=== PATIENT | female | born 1975 | race Caucasian/White ===

== ENCOUNTER 2016-09-12 07:18 | Emergency (ER) | payer OTHER ==
--- NOTE | 2016-09-12 08:24 | REP ---
Clinical: Trauma. Technique: AP, lateral, bilateral oblique and sunrise views of the right knee. Findings: Mild tricompartmental osteoarthritic degenerative changes are appreciated. Findings include cortical irregularities to the femoral condyles as well as medial osteophyte formation. [place] view demonstrates a bulky osteophyte along the lateral margin of the patella as well as increased sclerosis along the posterior patella and minimally decreased patellofemoral joint space. A suprapatellar effusion and medial prepatellar soft tissue swelling cannot be excluded. No acute fracture or dislocation identified. Impression: Swelling and possible effusion. Mild tricompartmental degenerative changes. No acute fracture or dislocation identified. Signed by Ranjit Bal MD 09/12/2016 08:16 A
--- NOTE | 2016-09-12 08:25 | EDDOCDS ---
Nurse's Notes [facility] Name: Tess Dotson Age: 40 yrs Sex: Female : 1975 Arrival Date: 09/12/2016 Time: 07:18 Bed I5 / M5 Private MD: Diagnosis: Pain in right knee Presentation: 09/12 07:25 Presenting complaint: Patient states: Injured right knee during work at [employer] last night mlb1 "turned awkwardly". Adult Sepsis Screening: The patient does not have new or worsening altered mentation. Patient's respiratory rate is less than 22. Systolic blood pressure is greater than 100. Patient has a qSOFA score of 0- Negative Sepsis Screen. Suicide/Homicide risk assessment- the patient denies having any suicidal and/or homicidal ideations and does not present with any other emotional, behavioral or mental health complaints. 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 Transition of care: patient was not received from another setting of care. 07:25 Acuity: MELINA Level 4 mlb1 07:25 Method Of Arrival: Walkin/Carried/Asstd mlb1 Triage Assessment: 07:28 General: Appears in no apparent distress, Behavior is appropriate for age, cooperative. mlb1 Pain: Location: right knee Pain currently is 5 out of 10 on a pain scale. Pt Declines HIV testing. 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 cetirizine 10 mg oral tab 1 tab once daily - PMHx: none; - PSHx: ; - Social history: Smoking status: No barriers to communication noted, The patient speaks fluent Croatian, Speaks appropriately for age. - Family history: Not pertinent. - : The pt / caregiver states he / she is not on anticoagulants. Home medication list is obtained from the patient. - Exposure Risk Screening:: None identified. Screenin:36 Screening information is obtained from the patient. Fall risk: No risks identified. jmk Assistance ADL's: requires no assistance with activities of daily living. Abuse/DV Screen: The patient / caregiver reports he/she is: not in a situation that causes fear, pain or injury. Nutritional screening: No deficits noted. Advance Directives: Currently, there is no health care proxy. There is no active DNR order. There is no living will. There is no Power of Lead Teller. Advance directive information has not previously been placed in an [facility] medical record. home support is adequate. Assessment: 07:34 General: Appears in no apparent distress, skin warm and dry color satisfactory.. jmk Indicates discomfort to right knee. without swelling redness or increased warmth. Is able to SLR. pain with palpation ot medial aspect.. 08:22 General: Appears 6" rachel wrap applied with relief.gait steady upon discharge. [facility] Vital Signs: 07:28 BP 127 / 85; Pulse 69; Resp 16; Temp 98.2(TE); Pulse Ox 96% ; Weight 108.86 kg (R); mlb1 Height 5 ft. 7 in. (170.18 cm) (R); Pain 5/10; 07:28 Body Mass Index 37.59 (108.86 kg, 170.18 cm) [facility] Vitals: 07:28 Log In Time: September 12, 2016 at 07:15. [facility] ED Course: 07:19 Patient visited by Alcides Burch Reg. pm4 07:19 Patient moved to Waiting pm4 07:25 Patient visited by Jonathan Stanford, RN. mlb1 07:26 Triage Initiated mlb1 07:29 Patient visited by Jonathan Stanford, RN. mlb1 07:29 Patient moved to I5 / M5 mlb1 07:32 [facility] cc[facility] 07:32 Ruben Henderson MD is Attending Physician. cc10 07:32 Patient visited by Brendan Gann PA-C. cc10 07:32 Patient visited by Brendan Gann PA-C. cc10 07:36 The patient / caregiver is instructed regarding the plan of care and ED course. jmk 08:13 [facility] is Referral Physician. cc10 08:22 No IV's were initiated during this patient's visit. No procedures done that require jmk assistance. Order Results: There are currently no results for this order. Outcome: 08:13 Discharge ordered by Provider. cc10 08:22 Discharge Assessment: Patient awake, alert and oriented x 3. No cognitive and/or jmk functional deficits noted. Patient verbalized understanding of disposition instructions. patient administered narcotics - no. The following High Risk Discharge criteria are identified: None. Condition: good. Discharge instructions given to patient, Instructed on discharge instructions, follow up and referral plans. medication usage, Demonstrated understanding of instructions, medications, Pt was receptive of discharge instructions/ teaching. Prescriptions given X 1. No special radiology studies were completed. Property :Personal belongings accompany Pt. 08:24 Patient left the ED. zoe Signatures: Glenn Herrera RN RN Jonathan Ga RN RN mlBrendan Brothers PA-C PAGretchen cc10 Alcides Burch, Reg Reg pm4 Corrections: (The following items were deleted from the chart) 07:26 07:25 Presenting complaint: Patient states: Injured right knee at work last night mlb1 "turned awkwardly" mlmaggie MTDD
--- NOTE | 2016-09-12 08:25 | EDDOCDS ---
Physician Documentation [facility] Name: Tess Dotson Age: 40 yrs Sex: Female : 1975 Arrival Date: 09/12/2016 Time: 07:18 Bed I5 / M5 Private MD: Disposition: 09/12/16 08:13 Discharged to Home/Self Care. Impression: Pain in right knee. - Condition is Stable. - Discharge Instructions: Knee Pain. - Prescriptions for Naprosyn 500 mg Oral Tablet - take 1 tablet by ORAL route 2 times per day take with food; 30 tablet. - Medication Reconciliation, [facility] Followup form. - Follow up: [facility]; When: Call to arrange an appointment; Reason: Wound/Symptom Recheck, Recheck today's complaints, Worsening of conditions, Continuance of care. - Problem is new. - Symptoms are unchanged. Historical: - Allergies: no known allergies; - Home Meds: 1. cetirizine 10 mg oral tab 1 tab once daily - PMHx: none; - PSHx: ; - Social history: Smoking status: No barriers to communication noted, The patient speaks fluent [place], Speaks appropriately for age. - Family history: Not pertinent. - : The pt / caregiver states he / she is not on anticoagulants. Home medication list is obtained from the patient. - Exposure Risk Screening:: None identified. [employer]: 09/12 07:28 LMP 08/21/2016 mlb1 Vital Signs: 07:28 BP 127 / 85; Pulse 69; Resp 16; Temp 98.2(TE); Pulse Ox 96% ; Weight 108.86 kg / 240 mlb1 lbs (R); Height 5 ft. 7 in. (170.18 cm) (R); Pain 5/10; 07:28 Body Mass Index 37.59 (108.86 kg, 170.18 cm) mlb1 MDM: 07:36 Knee, Complete Ordered. EDMS 07:43 Financial registration complete. lg 08:16 Luis Wrap ordered. cc10 Signatures: Dispatcher [employer] EDMS Glenn Herrera RN RN Briseyda Crowell, Mariano Reg Jonathan Rivas RN RN mlb1 Brendan Gann, PARachelC PA-C cc10 MTDD
--- NOTE | 2016-09-14 09:25 | EDDOCDS ---
Physician Documentation [facility] Name: Tess Dotson Age: 40 yrs Sex: Female : 1975 Arrival Date: 09/12/2016 Time: 07:18 Bed I5 / M5 Private MD: Disposition: 09/12/16 08:13 Discharged to Home/Self Care. Impression: Pain in right knee. - Condition is Stable. - Discharge Instructions: Knee Pain. - Prescriptions for Naprosyn 500 mg Oral Tablet - take 1 tablet by ORAL route 2 times per day take with food; 30 tablet. - Medication Reconciliation, [facility] Followup form. - Follow up: [facility]; When: Call to arrange an appointment; Reason: Wound/Symptom Recheck, Recheck today's complaints, Worsening of conditions, Continuance of care. - Problem is new. - Symptoms are unchanged. Historical: - Allergies: no known allergies; - Home Meds: 1. cetirizine 10 mg oral tab 1 tab once daily - PMHx: none; - PSHx: ; - Social history: Smoking status: No barriers to communication noted, The patient speaks fluent Panamanian, Speaks appropriately for age. - Family history: Not pertinent. - : The pt / caregiver states he / she is not on anticoagulants. Home medication list is obtained from the patient. - Exposure Risk Screening:: None identified. 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 7 in. (170.18 cm) (R); Pain 5/10; 07:28 Body Mass Index 37.59 (108.86 kg, 170.18 cm) mlb1 MDM: 07:36 Knee, Complete Ordered. EDMS 07:43 Financial registration complete. lg 08:16 Luis Wrap ordered. cc10 08:40 [facility] Agreement was scanned into [employer] and attached to record. lg 12:43 T-Sheet-- Draft Copy was scanned into [employer] and attached to record. klr Signatures: Dispatcher [employer] EDRI Glenn Herrera,RN RN Briseyda Crowell, Reg Reg lg Abdoulaye, Jonathan Salamanca RN RN mlb1 Brendan Gann, PARachelC PA-C cc10 Eda Schwartz The chart was reviewed and I authenticate all verbal orders and agree with the evaluation and treatment provided.Attachments: 08:40 [facility] Payment Agreement lg 12:43 T-Sheet-- Draft Copy klr Chart Complete MTDD
--- NOTE | 2016-09-14 09:25 | EDDOCDS ---
Physician Documentation [facility] Name: Tess Dotson Age: 40 yrs Sex: Female : 1975 Arrival Date: 09/12/2016 Time: 07:18 Bed I5 / M5 Private MD: Disposition: 09/12/16 08:13 Discharged to Home/Self Care. Impression: Pain in right knee. - Condition is Stable. - Discharge Instructions: Knee Pain. - Prescriptions for Naprosyn 500 mg Oral Tablet - take 1 tablet by ORAL route 2 times per day take with food; 30 tablet. - Medication Reconciliation, [facility] Followup form. - Follow up: [facility]; When: Call to arrange an appointment; Reason: Wound/Symptom Recheck, Recheck today's complaints, Worsening of conditions, Continuance of care. - Problem is new. - Symptoms are unchanged. Historical: - Allergies: no known allergies; - Home Meds: 1. cetirizine 10 mg oral tab 1 tab once daily - PMHx: none; - PSHx: ; - Social history: Smoking status: No barriers to communication noted, The patient speaks fluent [place], Speaks appropriately for age. - Family history: Not pertinent. - : The pt / caregiver states he / she is not on anticoagulants. Home medication list is obtained from the patient. - Exposure Risk Screening:: None identified. 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 7 in. (170.18 cm) (R); Pain 5/10; 07:28 Body Mass Index 37.59 (108.86 kg, 170.18 cm) mlb1 MDM: 07:36 Knee, Complete Ordered. EDMS 07:43 Financial registration complete. lg 08:16 Luis Wrap ordered. cc10 08:40 [facility] [place] [facility] Payment Agreement was scanned into [employer] and attached to record. lg 12:43 T-Sheet-- Draft Copy was scanned into [employer] and attached to record. klr Signatures: Dispatcher [employer] EDIL Glenn Herrera,RN RN Briseyda Crowell, Reg Reg lg Abdoulaye, Jonathan Salamanca RN RN mlb1 Brendan Gann, PARachelC PA-C cc10 Eda Schwartz The chart was reviewed and I authenticate all verbal orders and agree with the evaluation and treatment provided.Attachments: 08:40 [facility] Payment Agreement lg 12:43 T-Sheet-- Draft Copy klr Chart Complete MTDD
--- NOTE | 2016-09-14 09:26 | EDDOCDS ---
Nurse's Notes [facility] Name: Tess Dotson Age: 40 yrs Sex: Female : 1975 Arrival Date: 09/12/2016 Time: 07:18 Bed I5 / M5 Private MD: Diagnosis: Pain in right knee Presentation: 09/12 07:25 Presenting complaint: Patient states: Injured right knee during work at [employer] last night mlb1 "turned awkwardly". Adult Sepsis Screening: The patient does not have new or worsening altered mentation. Patient's respiratory rate is less than 22. Systolic blood pressure is greater than 100. Patient has a qSOFA score of 0- Negative Sepsis Screen. Suicide/Homicide risk assessment- the patient denies having any suicidal and/or homicidal ideations and does not present with any other emotional, behavioral or mental health complaints. 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 Transition of care: patient was not received from another setting of care. 07:25 Acuity: MELINA Level 4 mlb1 07:25 Method Of Arrival: Walkin/Carried/Asstd mlb1 Triage Assessment: 07:28 General: Appears in no apparent distress, Behavior is appropriate for age, cooperative. mlb1 Pain: Location: right knee Pain currently is 5 out of 10 on a pain scale. Pt Declines HIV testing. 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 cetirizine 10 mg oral tab 1 tab once daily - PMHx: none; - PSHx: ; - Social history: Smoking status: No barriers to communication noted, The patient speaks fluent Sudanese, Speaks appropriately for age. - Family history: Not pertinent. - : The pt / caregiver states he / she is not on anticoagulants. Home medication list is obtained from the patient. - Exposure Risk Screening:: None identified. Screenin:36 Screening information is obtained from the patient. Fall risk: No risks identified. jmk Assistance ADL's: requires no assistance with activities of daily living. Abuse/DV Screen: The patient / caregiver reports he/she is: not in a situation that causes fear, pain or injury. Nutritional screening: No deficits noted. Advance Directives: Currently, there is no health care proxy. There is no active DNR order. There is no living will. There is no Power of Rv Service Technician. Advance directive information has not previously been placed in an [facility] medical record. home support is adequate. Assessment: 07:34 General: Appears in no apparent distress, skin warm and dry color satisfactory.. jmk Indicates discomfort to right knee. without swelling redness or increased warmth. Is able to SLR. pain with palpation ot medial aspect.. 08:22 General: Appears 6" rachel wrap applied with relief.gait steady upon discharge. k Vital Signs: 07:28 BP 127 / 85; Pulse 69; Resp 16; Temp 98.2(TE); Pulse Ox 96% ; Weight 108.86 kg (R); mlb1 Height 5 ft. 7 in. (170.18 cm) (R); Pain 5/10; 07:28 Body Mass Index 37.59 (108.86 kg, 170.18 cm) [facility] Vitals: 07:28 Log In Time: September 12, 2016 at 07:15. b1 ED Course: 07:19 Patient visited by Alcides Burch Reg. pm4 07:19 Patient moved to Waiting pm4 07:25 Patient visited by Jonathan Stanford, RN. mlb1 07:26 Triage Initiated mlb1 07:29 Patient visited by Jonathan Stanford, RN. mlb1 07:29 Patient moved to I5 / M5 mlb1 07:32 Brendan Gann [facility]-C [facility] cc10 07:32 Ruben Henderson MD is Attending Physician. cc10 07:32 Patient visited by Brendan Gann PA-C. cc10 07:32 Patient visited by Brendan Gann PA-C. cc10 07:36 The patient / caregiver is instructed regarding the plan of care and ED course. jmk 08:13 [facility] is Referral Physician. cc10 08:22 No IV's were initiated during this patient's visit. No procedures done that require jmk assistance. 08:39 Patient name changed from Tess\\S\\K\\S\\Dotson\\S\\ to Tess\\S\\Erika\\S\\Dotson. EDMS 08:40 [facility] Payment Agreement was scanned into [employer] and attached to record. lg 08:55 Knee, Complete Returned. EDMS 12:43 T-Sheet-- Draft Copy was scanned into [employer] and attached to record. klr Order Results: Radiology Order: Knee, Complete Test: Knee, Complete REASON FOR EXAMINATION: Trauma; Clinical: Trauma.; ; Technique: AP, lateral, bilateral oblique and sunrise views of the right knee.; ; Findings:; Mild tricompartmental osteoarthritic degenerative changes are appreciated.; Findings include cortical irregularities to the femoral condyles as well as; medial osteophyte formation. [place] view demonstrates a bulky osteophyte along; the lateral margin of the patella as well as increased sclerosis along the; posterior patella and minimally decreased patellofemoral joint space. A; suprapatellar effusion and medial prepatellar soft tissue swelling cannot be; excluded. No acute fracture or dislocation identified.; ; Impression:; Swelling and possible effusion.; Mild tricompartmental degenerative changes.; No acute fracture or dislocation identified.; ; ; Signed by; Ranjit Bal MD 09/12/2016 08:16 A; Outcome: 08:13 Discharge ordered by Provider. cc10 08:22 Discharge Assessment: Patient awake, alert and oriented x 3. No cognitive and/or k functional deficits noted. Patient verbalized understanding of disposition instructions. patient administered narcotics - no. The following High Risk Discharge criteria are identified: None. Condition: good. Discharge instructions given to patient, Instructed on discharge instructions, follow up and referral plans. medication usage, Demonstrated understanding of instructions, medications, Pt was receptive of discharge instructions/ teaching. Prescriptions given X 1. No special radiology studies were completed. Property :Personal belongings accompany Pt. 08:24 Patient left the ED. zoe Signatures: Dispatcher [facility] EDWI Glenn Herrera,RN RN Briseyda Crowell, Reg Reg lg Jonathan Stanford RN RN mlb1 Brendan Gann, PARachelC PA-C cc10 Eda Schwartz Alcides Gaytan, Reg Reg pm4 Corrections: (The following items were deleted from the chart) 07:26 07:25 Presenting complaint: Patient states: Injured right knee at work last night mlb1 "turned awkwardly" mlb1 Chart Complete MTDD
== END 2016-09-12 08:24 | disposition home or self-care (01) ==
LOC: M ED 07:18
DX: S83.91XA Sprain of unspecified site of right knee, initial encounter (principal); X50.1XXA Overexertion from prolonged static or awkward postures, initial encounter; Y92.129 Unspecified place in nursing home as the place of occurrence of the external cause; Y93.9 Activity, unspecified; Y99.0 Civilian activity done for income or pay; Z79.899 Other long term (current) drug therapy

== ENCOUNTER → 2016-11-22 | Outpatient (CLI) | payer OTHER ==
[2016-11-22 15:35] LABS: MEAN CORPUSCULAR HEMOGLOBIN 32.6 pg (27.0-33.0); MEAN CORPUSCULAR HGB CONC 35.8 g/dl (32.0-36.5); MEAN CORPUSCULAR VOLUME 91.2 fl (80.0-96.0); RED CELL DISTRIBUTION WIDTH 12.3 % (11.5-14.5); WHITE BLOOD COUNT 7.4 K/mm3 (4.0-10.0)
[2016-11-22 16:05] LABS: ALBUMIN 3.9 GM/DL (3.2-5.2); ALBUMIN/GLOBULIN RATIO 1.22 (1.00-1.93); ALKALINE PHOSPHATASE 76 U/L (45-117); ALT/SGPT 25 U/L (12-78); ANION GAP 7 MEQ/L (8-16); AST/SGOT 13 U/L (15-37); BILIRUBIN,TOTAL 0.5 MG/DL (0.2-1.0); BLOOD UREA NITROGEN 13 MG/DL (7-18); CALCIUM LEVEL 8.8 MG/DL (8.5-10.1); CARBON DIOXIDE LEVEL 29 MEQ/L (21-32); CHLORIDE LEVEL 105 MEQ/L (98-107); CHOLESTEROL LEVEL 144 MG/DL (<200); CREATININE FOR GFR 0.76 MG/DL (0.55-1.02); FREE T4 0.99 NG/DL (0.76-1.46); GLOMERULAR FILTRATION RATE > 60.0 (>58); GLUCOSE, FASTING 96 MG/DL (70-105); POTASSIUM SERUM 3.7 MEQ/L (3.5-5.1); SODIUM LEVEL 141 MEQ/L (136-145); TOTAL PROTEIN 7.1 GM/DL (6.4-8.2); TRIGLYCERIDES LEVEL 113 MG/DL (<150)
== END ==
LOC: M LAB 14:45
PROVIDERS: ATTEND Student in an Organized Health Care Education/Training Program
DX: M25.552 Pain in left hip (principal); R53.83 Other fatigue; Z79.899 Other long term (current) drug therapy; Z71.89 Other specified counseling

== ENCOUNTER → 2016-11-23 | Outpatient (CLI) | payer OTHER ==
--- NOTE | 2016-11-23 15:50 | REP ---
LEFT HIP, TWO VIEWS: HISTORY: Pain. There is no acute fracture or dislocation. The joint space is normal in appearance. A small osteophyte is present on the acetabulum. IMPRESSION: Degenerative change as described above. Signed by Carlos Morfin MD 11/23/2016 03:59 P
== END ==
LOC: M RAD 15:05
PROVIDERS: ATTEND Student in an Organized Health Care Education/Training Program
DX: M19.90 Unspecified osteoarthritis, unspecified site (principal); M25.552 Pain in left hip

== ENCOUNTER → 2017-02-05 | Outpatient (REF) | payer OTHER | LOC: M LAB REF 08:50 | PROVIDERS: ATTEND Physician Assistant Medical | DX: R30.0 Dysuria (principal) ==

== ENCOUNTER → 2017-03-04 | Outpatient (REF) | payer OTHER, SELFPAY | LOC: M LAB REF 16:26 | PROVIDERS: ATTEND Physician Assistant Medical | DX: R30.0 Dysuria (principal) ==

== ENCOUNTER → 2017-09-23 | Outpatient (REF) | payer BC ==
[2017-09-23 18:11] LABS: APPEARANCE, URINE CLEAR (CLEAR); BACTERIA, URINE AUTO NEGATIVE (NEGATIVE); BILIRUBIN, URINE AUTO NEGATIVE (NEGATIVE); BLOOD, URINE BLOOD 3+ (NEGATIVE); COLOR, URINE YELLOW (YELLOW); GLUCOSE, URINE (UA) AUTO NEGATIVE (NEGATIVE); KETONE, URINE AUTO NEGATIVE (NEGATIVE); LEUKOCYTE ESTERASE, URINE AUTO NEGATIVE (NEGATIVE); MUCUS, URINE SMALL (NEGATIVE); NITRITE, URINE AUTO NEGATIVE (NEGATIVE); PROTEIN, URINE AUTO NEGATIVE (NEGATIVE); RBC, URINE AUTO 12 /HPF (0-3); SPECIFIC GRAVITY URINE AUTO 1.024 (1.002-1.035); SQUAMOUS EPITHELIAL CELL UR AU 0 /HPF (0-6); UROBILINOGEN, URINE AUTO 0.2 mg/dL (0.0-2.0); WBC, URINE AUTO 1 /HPF (0-3)
== END ==
LOC: M LAB REF 16:32
DX: N39.0 Urinary tract infection, site not specified (principal)
CPT/HCPCS: 81001

== ENCOUNTER → 2017-11-18 | Outpatient (REF) | payer BC ==
[2017-11-18 21:57] LABS: APPEARANCE, URINE CLEAR (CLEAR); BACTERIA, URINE AUTO 1+ (NEGATIVE); BILIRUBIN, URINE AUTO NEGATIVE (NEGATIVE); BLOOD, URINE BLOOD 1+ (NEGATIVE); CALCIUM OXALATE CRYSTALS SMALL; COLOR, URINE YELLOW (YELLOW); GLUCOSE, URINE (UA) AUTO NEGATIVE (NEGATIVE); KETONE, URINE AUTO TRACE mg/dL (NEGATIVE); LEUKOCYTE ESTERASE, URINE AUTO 1+ (NEGATIVE); MUCUS, URINE SMALL (NEGATIVE); NITRITE, URINE AUTO NEGATIVE (NEGATIVE); PROTEIN, URINE AUTO NEGATIVE (NEGATIVE); RBC, URINE AUTO 2 /HPF (0-3); SPECIFIC GRAVITY URINE AUTO 1.028 (1.002-1.035); SQUAMOUS EPITHELIAL CELL UR AU 4 /HPF (0-6); UROBILINOGEN, URINE AUTO 0.2 mg/dL (0.0-2.0); WBC, URINE AUTO 2 /HPF (0-3)
== END ==
LOC: M LAB REF 10:26
DX: N39.0 Urinary tract infection, site not specified (principal)
CPT/HCPCS: 81001

== ENCOUNTER → 2018-02-20 | Outpatient (REF) | payer BC ==
[2018-02-20 17:09] LABS: APPEARANCE, URINE CLEAR (CLEAR); BACTERIA, URINE AUTO 1+ (NEGATIVE); BILIRUBIN, URINE AUTO NEGATIVE (NEGATIVE); BLOOD, URINE BLOOD NEGATIVE (NEGATIVE); COLOR, URINE YELLOW (YELLOW); GLUCOSE, URINE (UA) AUTO NEGATIVE (NEGATIVE); KETONE, URINE AUTO NEGATIVE (NEGATIVE); LEUKOCYTE ESTERASE, URINE AUTO 1+ (NEGATIVE); NITRITE, URINE AUTO NEGATIVE (NEGATIVE); PROTEIN, URINE AUTO NEGATIVE (NEGATIVE); RBC, URINE AUTO 0 /HPF (0-3); SQUAMOUS EPITHELIAL CELL UR AU 2 /HPF (0-6); UROBILINOGEN, URINE AUTO 0.2 mg/dL (0.0-2.0); WBC, URINE AUTO 1 /HPF (0-3)
== END ==
LOC: M LAB REF 16:40
DX: N39.0 Urinary tract infection, site not specified (principal)
CPT/HCPCS: 81001

== ENCOUNTER → 2018-07-16 | Outpatient (CLI) | payer BC ==
--- NOTE | 2018-07-16 16:51 | REPMRS ---
Patient History The patient states she had a clinical breast exam in 06/2018. No known family history of cancer. No Hormone Replacement Therapy Digital Woman Screen Mammo: July 16, 2018 - Exam #: [id number] Bilateral CC and MLO view(s) were taken. Technologist: Sherrell Charles, Technologist No prior studies available for comparison. FINDINGS: There are scattered fibroglandular densities. There is no evidence of dominant mass, architectural distortion, or clustered microcalcification typical of malignancy. 3-D tomosynthesis shows no additional findings. Assessment: BI-RADS/ACR category 1 mammogram. Negative. Recommendation Routine screening mammogram of both breasts in 1 year (for women over age 40). This patient's Lifetime Breast Cancer RIsk is estimated at 9.0 %. This mammogram was interpreted with the aid of an FDA-approved computer-aided dectection system. Electronically Signed By: Ortiz Schmidt MD 07/16/18 [id number]
== END ==
LOC: M WHC 15:06
PROVIDERS: ATTEND Nurse Practitioner Family
DX: Z12.31 Encounter for screening mammogram for malignant neoplasm of breast (principal)

== ENCOUNTER → 2018-07-16 | Outpatient (REF) | payer BC ==
[2018-07-19 14:10] LABS: HPV HYBRID CAPTURE II Negative (Negative)
== END ==
LOC: M SFHCWAGY 15:25
PROVIDERS: ATTEND Nurse Practitioner Family
DX: Z12.4 Encounter for screening for malignant neoplasm of cervix (principal)
CPT/HCPCS: 87624; G0123

== ENCOUNTER → 2018-09-07 | Outpatient (CLI) | payer BC ==
--- NOTE | 2018-09-08 10:49 | REP ---
LEFT WRIST, FOUR VIEWS: There is no evidence of an acute fracture, dislocation or intrinsic bone disease. IMPRESSION: No fracture or dislocation. Electronically Signed by Delbert Colon MD 09/08/2018 10:51 P
== END ==
LOC: M WUC 15:05
PROVIDERS: ATTEND Physician Assistant
DX: S60.212A Contusion of left wrist, initial encounter (principal); X58.XXXA Exposure to other specified factors, initial encounter; Y92.9 Unspecified place or not applicable

== ENCOUNTER → 2020-01-18 | Outpatient (CLI) | payer BC ==
[2020-01-18 12:35] LABS: ALBUMIN 3.9 GM/DL (3.2-5.2); ALT/SGPT 23 U/L (12-78); BILIRUBIN,TOTAL 0.5 MG/DL (0.2-1.0); BLOOD UREA NITROGEN 17 MG/DL (7-18); CALCIUM LEVEL 9.2 MG/DL (8.5-10.1); CARBON DIOXIDE LEVEL 26 MEQ/L (21-32); CHLORIDE LEVEL 107 MEQ/L (98-107); CHOLESTEROL LEVEL 143 MG/DL (<200); CHOLESTEROL RISK RATIO 4.766 (<5); CREATININE FOR GFR 0.76 MG/DL (0.55-1.30); GLOMERULAR FILTRATION RATE > 60.0 (>58); GLUCOSE, FASTING 82 MG/DL (70-100); HDL CHOLESTEROL 30 MG/DL (>40); LDL CHOLESTEROL 73 MG/DL (<100); NON-HDL-C 113 MG/DL; POTASSIUM SERUM 4.3 MEQ/L (3.5-5.1); SODIUM LEVEL 141 MEQ/L (136-145); TOTAL PROTEIN 7.1 GM/DL (6.4-8.2); TRIGLYCERIDES LEVEL 199 MG/DL (<150)
== END ==
LOC: M LAB 10:44
PROVIDERS: ATTEND Physician Assistant Medical
DX: Z13.220 Encounter for screening for lipoid disorders (principal)

== ENCOUNTER → 2020-02-01 | Outpatient (CLI) | payer BC | LOC: M LAB 09:49 | PROVIDERS: ATTEND Physician Assistant Medical | DX: Z11.1 Encounter for screening for respiratory tuberculosis (principal) ==

== ENCOUNTER → 2020-02-05 | Outpatient (CLI) | payer BC | LOC: M LAB 14:04 | PROVIDERS: ATTEND Physician Assistant Medical | DX: Z13.89 Encounter for screening for other disorder (principal) ==

== ENCOUNTER → 2021-03-03 | Outpatient (CLI) | payer BC ==
[2021-03-03 18:28] LABS: ALBUMIN 3.9 GM/DL (3.2-5.2); ALT/SGPT 23 U/L (12-78); BILIRUBIN,TOTAL 0.3 MG/DL (0.2-1.0); BLOOD UREA NITROGEN 18 MG/DL (7-18); CALCIUM LEVEL 8.9 MG/DL (8.5-10.1); CARBON DIOXIDE LEVEL 27 MEQ/L (21-32); CHLORIDE LEVEL 107 MEQ/L (98-107); CHOLESTEROL LEVEL 139 MG/DL (<200); CHOLESTEROL RISK RATIO 4.633 (<5); CREATININE FOR GFR 0.79 MG/DL (0.55-1.30); GLOMERULAR FILTRATION RATE > 60.0 (>58); GLUCOSE, FASTING 84 MG/DL (70-100); HDL CHOLESTEROL 30 MG/DL (>40); LDL CHOLESTEROL 63 MG/DL (<100); NON-HDL-C 109 MG/DL; POTASSIUM SERUM 3.7 MEQ/L (3.5-5.1); SODIUM LEVEL 139 MEQ/L (136-145); TOTAL PROTEIN 7.2 GM/DL (6.4-8.2); TRIGLYCERIDES LEVEL 230 MG/DL (<150)
== END ==
LOC: M LAB 17:24
PROVIDERS: ATTEND Family Medicine
DX: Z00.00 Encounter for general adult medical examination without abnormal findings (principal)

== ENCOUNTER → 2021-03-04 | Outpatient (CLI) | payer BC ==
[2021-03-04 13:50] LABS: BASO % 0.3 % (0.0-1.0); EOS # 0.1 10^3/uL (0.0-0.5); EOS % 1.4 % (0.0-3.0); HEMATOCRIT 40.3 % (36.0-47.0); HEMOGLOBIN 13.6 g/dl (12.0-15.5); LYMPH # 1.9 10^3/uL (1.5-5.0); LYMPH % 30.9 % (24.0-44.0); MEAN CORPUSCULAR HGB CONC 33.7 g/dl (32.0-36.5); MEAN CORPUSCULAR VOLUME 88.8 fl (80.0-96.0); MONO # 0.6 10^3/uL (0.0-0.8); MONO % 9.3 % (2.0-8.0); NEUTROPHILS # 3.6 10^3/uL (1.5-8.5); NEUTROPHILS % 57.8 % (36.0-66.0); PLATELET COUNT, AUTOMATED 235 10^3/uL (150-450); RED BLOOD COUNT 4.54 10^6/uL (4.00-5.40); WHITE BLOOD COUNT 6.3 10^3/uL (4.0-10.0)
== END ==
LOC: M LAB 12:59
PROVIDERS: ATTEND Family Medicine
DX: Z00.00 Encounter for general adult medical examination without abnormal findings (principal)

== ENCOUNTER → 2021-05-01 | Outpatient (REF) | payer BC ==
[2021-05-01 15:28] LABS: APPEARANCE, URINE CLEAR (CLEAR); BACTERIA, URINE AUTO NEGATIVE (NEGATIVE); BILIRUBIN, URINE AUTO NEGATIVE (NEGATIVE); BLOOD, URINE BLOOD NEGATIVE (NEGATIVE); COLOR, URINE YELLOW (YELLOW); GLUCOSE, URINE (UA) AUTO NEGATIVE (NEGATIVE); KETONE, URINE AUTO NEGATIVE (NEGATIVE); LEUKOCYTE ESTERASE, URINE AUTO NEGATIVE (NEGATIVE); MUCUS, URINE SMALL (NEGATIVE); NITRITE, URINE AUTO NEGATIVE (NEGATIVE); PROTEIN, URINE AUTO NEGATIVE (NEGATIVE); RBC, URINE AUTO 1 /HPF (0-3); SPECIFIC GRAVITY URINE AUTO 1.009 (1.002-1.035); SQUAMOUS EPITHELIAL CELL UR AU 0 /HPF (0-6); UROBILINOGEN, URINE AUTO 0.2 mg/dL (0.0-2.0); WBC, URINE AUTO 3 /HPF (0-3)
== END ==
LOC: M LAB REF 14:57
PROVIDERS: ATTEND Physician Assistant Medical
DX: N39.0 Urinary tract infection, site not specified (principal)

== ENCOUNTER → 2021-05-10 | Outpatient (REF) | LOC: M EMP 07:40 | PROVIDERS: ATTEND Family Medicine | DX: Z11.52 Encounter for screening for COVID-19 (principal) ==

== ENCOUNTER → 2021-05-22 | Outpatient (REF) | payer BC ==
[2021-05-22 11:58] LABS: APPEARANCE, URINE HAZY (CLEAR); BACTERIA, URINE AUTO NEGATIVE (NEGATIVE); BILIRUBIN, URINE AUTO NEGATIVE (NEGATIVE); BLOOD, URINE BLOOD 1+ (NEGATIVE); COLOR, URINE AMBER (YELLOW); GLUCOSE, URINE (UA) AUTO NEGATIVE (NEGATIVE); KETONE, URINE AUTO NEGATIVE (NEGATIVE); LEUKOCYTE ESTERASE, URINE AUTO 1+ (NEGATIVE); MUCUS, URINE SMALL (NEGATIVE); NITRITE, URINE AUTO POSITIVE (NEGATIVE); PROTEIN, URINE AUTO 2+ mg/dL (NEGATIVE); RBC, URINE AUTO 12 /HPF (0-3); SPECIFIC GRAVITY URINE AUTO 1.033 (1.002-1.035); SQUAMOUS EPITHELIAL CELL UR AU 10 /HPF (0-6); WBC, URINE AUTO 16 /HPF (0-3)
== END ==
LOC: M LAB REF 11:22
PROVIDERS: ATTEND Physician Assistant Medical
DX: N39.0 Urinary tract infection, site not specified (principal)

== ENCOUNTER → 2021-05-30 | Outpatient (REF) | payer BC | LOC: M LAB REF 17:34 | PROVIDERS: ATTEND Family Medicine | DX: N39.0 Urinary tract infection, site not specified (principal) ==

== ENCOUNTER → 2021-06-29 | Outpatient (CLI) | payer BC | LOC: M WHC 10:03 | PROVIDERS: ATTEND Nurse Practitioner Women's Health | DX: Z12.31 Encounter for screening mammogram for malignant neoplasm of breast (principal) ==

== ENCOUNTER → 2021-06-29 | Outpatient (REF) | payer BC | LOC: M SFHCWAGY 13:55 | PROVIDERS: ATTEND Nurse Practitioner Women's Health | DX: Z12.4 Encounter for screening for malignant neoplasm of cervix (principal); Z01.419 Encounter for gynecological examination (general) (routine) without abnormal findings ==

== ENCOUNTER → 2022-07-25 | Outpatient (REF) | payer BC ==
[2022-07-25 16:33] LABS: APPEARANCE, URINE MANUAL CLEAR (CLEAR); COLOR, URINE MANUAL YELLOW (YELLOW); SPECIFIC GRAVITY,URINE MANUAL 1.015 (1.002-1.035)
[2022-07-25 16:34] LABS: BILIRUBIN, URINE MANUAL NEGATIVE (NEGATIVE); BLOOD URINE MANUAL NEGATIVE (NEGATIVE); GLUCOSE, URINE (UA) MANUAL NEGATIVE (NEGATIVE); KETONE, URINE MANUAL NEGATIVE (NEGATIVE); LEUKOCYTE ESTERASE, URINE MAN TRACE (NEGATIVE); NITRITE, URINE MANUAL POSITIVE (NEGATIVE); PROTEIN, URINE MANUAL NEGATIVE (NEGATIVE); UROBILINOGEN, URINE MANUAL NORMAL (NORMAL)
[2022-07-25 16:56] LABS: BACTERIA, URINE LARGE AMOUNT; HYALINE CAST, URINE NONE SEEN /lpf (0-1); RBC, URINE 0-1 /hpf (0-3); SQUAMOUS EPITHELIAL CELL URINE SMALL AMOUNT /hpf (SMALL AMT)
== END ==
LOC: M LAB REF 16:19
PROVIDERS: ATTEND Physician Assistant
DX: N39.0 Urinary tract infection, site not specified (principal)

== ENCOUNTER → 2022-07-26 | Outpatient (REF) | LOC: M LABSMTC 10:53 | PROVIDERS: ATTEND Family Medicine | DX: Z11.52 Encounter for screening for COVID-19 (principal) ==

== ENCOUNTER → 2022-08-21 | Outpatient (REF) | payer BC ==
[2022-08-21 12:29] LABS: APPEARANCE, URINE MANUAL HAZY (CLEAR); COLOR, URINE MANUAL YELLOW (YELLOW)
[2022-08-21 12:30] LABS: BILIRUBIN, URINE MANUAL NEGATIVE (NEGATIVE); BLOOD URINE MANUAL TRACE (NEGATIVE); GLUCOSE, URINE (UA) MANUAL NEGATIVE (NEGATIVE); KETONE, URINE MANUAL NEGATIVE (NEGATIVE); LEUKOCYTE ESTERASE, URINE MAN POSITIVE (NEGATIVE); NITRITE, URINE MANUAL POSITIVE (NEGATIVE); PROTEIN, URINE MANUAL NEGATIVE (NEGATIVE); UROBILINOGEN, URINE MANUAL NORMAL (NORMAL)
[2022-08-21 12:43] LABS: BACTERIA, URINE LARGE AMOUNT; HYALINE CAST, URINE NONE SEEN /lpf (0-1); SQUAMOUS EPITHELIAL CELL URINE MOD AMOUNT /hpf (SMALL AMT)
== END ==
LOC: M LAB REF 11:29
PROVIDERS: ATTEND Physician Assistant Medical
DX: N39.9 Disorder of urinary system, unspecified (principal)

== ENCOUNTER → 2022-11-07 | Outpatient (CLI) | payer BC ==
[2022-11-07 11:40] LABS: BASO % 0.4 % (0.0-1.0); EOS # 0.1 10^3/uL (0.0-0.5); HEMATOCRIT 38.1 % (36.0-47.0); LYMPH # 1.4 10^3/uL (1.5-5.0); LYMPH % 27.5 % (24.0-44.0); MEAN CORPUSCULAR HEMOGLOBIN 26.1 pg (27.0-33.0); MEAN CORPUSCULAR HGB CONC 31.5 g/dl (32.0-36.5); MONO # 0.4 10^3/uL (0.0-0.8); MONO % 8.6 % (2.0-8.0); NEUTROPHILS # 3.2 10^3/uL (1.5-8.5); NEUTROPHILS % 61.9 % (36.0-66.0); PLATELET COUNT, AUTOMATED 258 10^3/uL (150-450); RED BLOOD COUNT 4.59 10^6/uL (4.00-5.40); WHITE BLOOD COUNT 5.1 10^3/uL (4.0-10.0)
[2022-11-07 12:00] LABS: ALBUMIN 3.8 G/DL (3.2-5.2); ALKALINE PHOSPHATASE 60 U/L (46-116); ALT/SGPT 14 U/L (7.0-40); AST/SGOT 13 U/L (<34); BILIRUBIN,TOTAL 0.6 MG/DL (0.3-1.2); BLOOD UREA NITROGEN 18 MG/DL (9-23); CALCIUM LEVEL 8.7 MG/DL (8.5-10.1); CARBON DIOXIDE LEVEL 24 MMOL/L (20-31); CHLORIDE LEVEL 108 MMOL/L (98-107); CHOLESTEROL LEVEL 138 MG/DL (<200); CHOLESTEROL RISK RATIO 3.79 (<5); CREATININE FOR GFR 0.71 MG/DL (0.55-1.30); GLOMERULAR FILTRATION RATE > 60.0 (>58); GLUCOSE, FASTING 86 MG/DL (60-100); HDL CHOLESTEROL 36.4 MG/DL (>40); LDL CHOLESTEROL 81.4 MG/DL (<100); NON-HDL-C 101.6 MG/DL; SODIUM LEVEL 138 MMOL/L (136-145); TOTAL PROTEIN 6.7 G/DL (5.7-8.2); TRIGLYCERIDES LEVEL 101 MG/DL (<150)
[2022-11-07 12:03] LABS: THYROID STIMULATING HORMONE 0.747 uIU/ML (0.55-4.78)
== END ==
LOC: M LAB 10:57
PROVIDERS: ATTEND Family Medicine
DX: Z00.00 Encounter for general adult medical examination without abnormal findings (principal)

== ENCOUNTER → 2022-11-15 | Outpatient (CLI) | payer BC | LOC: M PLAIMG 15:21 | PROVIDERS: ATTEND Nurse Practitioner Family | DX: Z11.1 Encounter for screening for respiratory tuberculosis (principal) ==

== ENCOUNTER → 2023-03-24 | Outpatient (REF) | payer BC ==
[2023-03-24 20:26] LABS: APPEARANCE, URINE HAZY (CLEAR); BACTERIA, URINE AUTO 2+ (NEGATIVE); BILIRUBIN, URINE AUTO NEGATIVE (NEGATIVE); BLOOD, URINE BLOOD 1+ (NEGATIVE); COLOR, URINE AMBER (YELLOW); GLUCOSE, URINE (UA) AUTO NEGATIVE (NEGATIVE); KETONE, URINE AUTO NEGATIVE (NEGATIVE); LEUKOCYTE ESTERASE, URINE AUTO 2+ (NEGATIVE); MUCUS, URINE SMALL (NEGATIVE); NITRITE, URINE AUTO POSITIVE (NEGATIVE); PROTEIN, URINE AUTO NEGATIVE (NEGATIVE); RBC, URINE AUTO 3 /HPF (0-3); SQUAMOUS EPITHELIAL CELL UR AU 6 /HPF (0-6); UROBILINOGEN, URINE AUTO 0.2 mg/dL (0.0-2.0); WBC, URINE AUTO 83 /HPF (0-3)
== END ==
LOC: M LAB REF 09:21
PROVIDERS: ATTEND Physician Assistant
DX: N39.0 Urinary tract infection, site not specified (principal)

== ENCOUNTER → 2023-06-26 | Outpatient (CLI) | payer BC ==
[2023-06-26 10:16] LABS: BASO % 0.4 % (0.0-1.0); EOS # 0.1 10^3/uL (0.0-0.5); HEMATOCRIT 36.1 % (36.0-47.0); LYMPH # 1.2 10^3/uL (1.5-5.0); LYMPH % 24.1 % (24.0-44.0); MEAN CORPUSCULAR HEMOGLOBIN 23.5 pg (27.0-33.0); MEAN CORPUSCULAR HGB CONC 30.5 g/dl (32.0-36.5); MONO # 0.4 10^3/uL (0.0-0.8); MONO % 8.9 % (2.0-8.0); NEUTROPHILS # 3.2 10^3/uL (1.5-8.5); NEUTROPHILS % 65.2 % (36.0-66.0); PLATELET COUNT, AUTOMATED 330 10^3/uL (150-450); RED BLOOD COUNT 4.69 10^6/uL (4.00-5.40); WHITE BLOOD COUNT 4.9 10^3/uL (4.0-10.0)
[2023-06-26 10:51] LABS: ALBUMIN 3.9 G/DL (3.2-5.2); ALKALINE PHOSPHATASE 60 U/L (46-116); ALT/SGPT 15 U/L (7.0-40); AST/SGOT 12 U/L (<34); BILIRUBIN,TOTAL 0.6 MG/DL (0.3-1.2); BLOOD UREA NITROGEN 20 MG/DL (9-23); CALCIUM LEVEL 9.5 MG/DL (8.5-10.1); CARBON DIOXIDE LEVEL 26 MMOL/L (20-31); CHLORIDE LEVEL 106 MMOL/L (98-107); CHOLESTEROL LEVEL 160 MG/DL (<200); CHOLESTEROL RISK RATIO 3.89 (<5); CREATININE FOR GFR 0.75 MG/DL (0.55-1.30); GLOMERULAR FILTRATION RATE > 60.0 (>58); GLUCOSE, FASTING 98 MG/DL (60-100); HDL CHOLESTEROL 41.1 MG/DL (>40); LDL CHOLESTEROL 101.3 MG/DL (<100); NON-HDL-C 118.9 MG/DL; SODIUM LEVEL 137 MMOL/L (136-145); TOTAL PROTEIN 7.3 G/DL (5.7-8.2); TRIGLYCERIDES LEVEL 88 MG/DL (<150)
== END ==
LOC: M LAB 09:26
PROVIDERS: ATTEND Registered Nurse
DX: E66.9 Obesity, unspecified (principal)

== ENCOUNTER → 2023-08-20 | Outpatient (CLI) | payer BC | LOC: M WHC 10:54 | PROVIDERS: ATTEND Registered Nurse | DX: Z12.31 Encounter for screening mammogram for malignant neoplasm of breast (principal) ==

== ENCOUNTER → 2023-09-30 | Outpatient (REF) | payer BC | LOC: M LABWUC 17:58 | PROVIDERS: ATTEND Registered Nurse | DX: N91.2 Amenorrhea, unspecified (principal) ==

== ENCOUNTER → 2023-10-30 | Outpatient (CLI) | payer BC ==
[2023-10-30 13:33] LABS: BASO % 0.4 % (0.0-1.0); EOS # 0.1 10^3/uL (0.0-0.5); EOS % 1.2 % (0.0-3.0); HEMATOCRIT 29.8 % (36.0-47.0); HEMOGLOBIN 9.3 g/dl (12.0-15.5); LYMPH # 1.7 10^3/uL (1.5-5.0); LYMPH % 34.3 % (24.0-44.0); MEAN CORPUSCULAR HEMOGLOBIN 22.9 pg (27.0-33.0); MEAN CORPUSCULAR HGB CONC 31.2 g/dl (32.0-36.5); MEAN CORPUSCULAR VOLUME 73.4 fl (80.0-96.0); MONO # 0.4 10^3/uL (0.0-0.8); MONO % 7.1 % (2.0-8.0); NEUTROPHILS # 2.9 10^3/uL (1.5-8.5); NEUTROPHILS % 56.6 % (36.0-66.0); PLATELET COUNT, AUTOMATED 328 10^3/uL (150-450); RED BLOOD COUNT 4.06 10^6/uL (4.00-5.40); WHITE BLOOD COUNT 5.1 10^3/uL (4.0-10.0)
[2023-10-30 13:57] LABS: ALBUMIN 3.5 G/DL (3.2-5.2); ALKALINE PHOSPHATASE 71 U/L (46-116); ALT/SGPT 19 U/L (7.0-40); AST/SGOT 16 U/L (<34); BILIRUBIN,TOTAL 0.4 MG/DL (0.3-1.2); BLOOD UREA NITROGEN 22 MG/DL (9-23); CALCIUM LEVEL 9.5 MG/DL (8.5-10.1); CARBON DIOXIDE LEVEL 26 MMOL/L (20-31); CHLORIDE LEVEL 107 MMOL/L (98-107); CREATININE FOR GFR 0.95 MG/DL (0.55-1.30); GLOMERULAR FILTRATION RATE > 60.0 (>58); GLUCOSE, FASTING 90 MG/DL (60-100); IRON (FE) 93 UG/DL (50-170); PERCENT SATURATION 23.5 % (13.2-45.0); SODIUM LEVEL 135 MMOL/L (136-145); TOTAL IRON BINDING CAPACITY 396 UG/DL (250-425); TOTAL PROTEIN 6.9 G/DL (5.7-8.2)
[2023-10-30 13:59] LABS: FERRITIN 2.4 NG/ML (7.3-270.7)
== END ==
LOC: M LAB 12:18
PROVIDERS: ATTEND Registered Nurse
DX: N92.1 Excessive and frequent menstruation with irregular cycle (principal)

== ENCOUNTER → 2023-11-11 | Outpatient (CLI) | payer BC | LOC: M RAD 14:15 | PROVIDERS: ATTEND Registered Nurse | DX: N92.1 Excessive and frequent menstruation with irregular cycle (principal) ==

== ENCOUNTER → 2023-11-29 | Outpatient (CLI) | payer BC ==
[2023-11-29 14:47] LABS: BASO % 0.2 % (0.0-1.0); EOS # 0.1 10^3/uL (0.0-0.5); EOS % 1.2 % (0.0-3.0); HEMATOCRIT 26.7 % (36.0-47.0); HEMOGLOBIN 7.8 g/dl (12.0-15.5); LYMPH # 1.5 10^3/uL (1.5-5.0); LYMPH % 29.3 % (24.0-44.0); MEAN CORPUSCULAR HGB CONC 29.2 g/dl (32.0-36.5); MEAN CORPUSCULAR VOLUME 75.4 fl (80.0-96.0); MONO # 0.5 10^3/uL (0.0-0.8); MONO % 10.8 % (2.0-8.0); NEUTROPHILS # 2.9 10^3/uL (1.5-8.5); NEUTROPHILS % 58.1 % (36.0-66.0); PLATELET COUNT, AUTOMATED 290 10^3/uL (150-450); RED BLOOD COUNT 3.54 10^6/uL (4.00-5.40)
[2023-11-29 15:20] LABS: ALBUMIN 3.2 G/DL (3.2-5.2); ALKALINE PHOSPHATASE 54 U/L (46-116); ALT/SGPT 14 U/L (7.0-40); AST/SGOT 11 U/L (<34); BILIRUBIN,TOTAL 0.4 MG/DL (0.3-1.2); BLOOD UREA NITROGEN 16 MG/DL (9-23); CALCIUM LEVEL 8.8 MG/DL (8.5-10.1); CARBON DIOXIDE LEVEL 25 MMOL/L (20-31); CHLORIDE LEVEL 107 MMOL/L (98-107); CHOLESTEROL LEVEL 134 MG/DL (<200); CHOLESTEROL RISK RATIO 3.25 (<5); CREATININE FOR GFR 0.72 MG/DL (0.55-1.30); GLOMERULAR FILTRATION RATE > 60.0 (>58); GLUCOSE, FASTING 75 MG/DL (60-100); HDL CHOLESTEROL 41.2 MG/DL (>40); LDL CHOLESTEROL 70.8 MG/DL (<100); NON-HDL-C 92.8 MG/DL; SODIUM LEVEL 139 MMOL/L (136-145); TOTAL PROTEIN 6.5 G/DL (5.7-8.2); TRIGLYCERIDES LEVEL 110 MG/DL (<150)
[2023-11-29 15:21] LABS: FREE T4 1.06 NG/DL (0.89-1.76)
== END ==
LOC: M LAB 14:23
PROVIDERS: ATTEND Registered Nurse
DX: E66.9 Obesity, unspecified (principal)

== ENCOUNTER → 2023-12-27 | Outpatient (REF) | LOC: M EMP 10:34 | PROVIDERS: ATTEND Family Medicine | DX: Z20.822 Contact with and (suspected) exposure to COVID-19 (principal) ==

== ENCOUNTER → 2024-01-16 | Outpatient (CLI) | payer BC | LOC: M WUC 14:09 | PROVIDERS: ATTEND Registered Nurse | DX: M25.551 Pain in right hip (principal) ==

== ENCOUNTER → 2024-01-16 | Outpatient (CLI) | payer BC ==
[2024-01-16 14:10] LABS: BASO % 0.3 % (0.0-1.0); EOS # 0.1 10^3/uL (0.0-0.5); HEMATOCRIT 34.7 % (36.0-47.0); HEMOGLOBIN 10.4 g/dl (12.0-15.5); LYMPH # 1.5 10^3/uL (1.5-5.0); LYMPH % 23.8 % (24.0-44.0); MEAN CORPUSCULAR HEMOGLOBIN 24.5 pg (27.0-33.0); MEAN CORPUSCULAR VOLUME 81.8 fl (80.0-96.0); MONO # 0.5 10^3/uL (0.0-0.8); MONO % 7.3 % (2.0-8.0); NEUTROPHILS # 4.1 10^3/uL (1.5-8.5); NEUTROPHILS % 67.3 % (36.0-66.0); PLATELET COUNT, AUTOMATED 311 10^3/uL (150-450); RED BLOOD COUNT 4.24 10^6/uL (4.00-5.40); WHITE BLOOD COUNT 6.1 10^3/uL (4.0-10.0)
[2024-01-16 14:32] LABS: PERCENT SATURATION 20.7 % (13.2-45.0)
[2024-01-16 14:35] LABS: FERRITIN 3.7 NG/ML (7.3-270.7)
[2024-01-17 07:13] LABS: Estimated Ave Glu(eAG) 4.7 mmol/L; Hemoglobin A1c 4.6 (<5.7)
== END ==
LOC: M LAB 13:40
PROVIDERS: ATTEND Registered Nurse
DX: D50.9 Iron deficiency anemia, unspecified (principal); E66.9 Obesity, unspecified

== ENCOUNTER → 2024-01-26 | Outpatient (REF) | payer BC ==
[2024-01-26 18:53] LABS: APPEARANCE, URINE CLEAR (CLEAR); BACTERIA, URINE AUTO 1+ (NEGATIVE); BILIRUBIN, URINE AUTO NEGATIVE (NEGATIVE); BLOOD, URINE BLOOD 1+ (NEGATIVE); COLOR, URINE YELLOW (YELLOW); GLUCOSE, URINE (UA) AUTO NEGATIVE (NEGATIVE); KETONE, URINE AUTO NEGATIVE (NEGATIVE); LEUKOCYTE ESTERASE, URINE AUTO NEGATIVE (NEGATIVE); MUCUS, URINE SMALL (NEGATIVE); NITRITE, URINE AUTO NEGATIVE (NEGATIVE); PROTEIN, URINE AUTO NEGATIVE (NEGATIVE); RBC, URINE AUTO 0 /HPF (0-3); SPECIFIC GRAVITY URINE AUTO 1.003 (1.002-1.035); SQUAMOUS EPITHELIAL CELL UR AU 0 /HPF (0-6); UROBILINOGEN, URINE AUTO 0.2 mg/dL (0.0-2.0); WBC, URINE AUTO 0 /HPF (0-3)
== END ==
LOC: M LAB REF 17:57
PROVIDERS: ATTEND Physician Assistant
DX: N39.0 Urinary tract infection, site not specified (principal)

== ENCOUNTER → 2024-03-09 | Outpatient (REF) | payer BC ==
[2024-03-09 22:02] LABS: APPEARANCE, URINE HAZY (CLEAR); BACTERIA, URINE AUTO 1+ (NEGATIVE); BILIRUBIN, URINE AUTO NEGATIVE (NEGATIVE); BLOOD, URINE BLOOD 2+ (NEGATIVE); COLOR, URINE YELLOW (YELLOW); GLUCOSE, URINE (UA) AUTO NEGATIVE (NEGATIVE); KETONE, URINE AUTO NEGATIVE (NEGATIVE); LEUKOCYTE ESTERASE, URINE AUTO 3+ (NEGATIVE); MUCUS, URINE SMALL (NEGATIVE); NITRITE, URINE AUTO NEGATIVE (NEGATIVE); PROTEIN, URINE AUTO NEGATIVE (NEGATIVE); RBC, URINE AUTO 4 /HPF (0-3); SQUAMOUS EPITHELIAL CELL UR AU 3 /HPF (0-6); UROBILINOGEN, URINE AUTO 0.2 mg/dL (0.0-2.0); WBC, URINE AUTO 135 /HPF (0-3)
== END ==
LOC: M LAB REF 21:06
PROVIDERS: ATTEND Physician Assistant Medical
DX: N39.0 Urinary tract infection, site not specified (principal)

== ENCOUNTER → 2024-04-02 | Outpatient (REF) | payer BC ==
[~2024-04-02] MED LIST: B-122500 PO; BACT800T5 PO; CETI10CA13 PO; CRAN500C11 PO; FURO20TA2 PO; IRON27TA2 PO; MEDR10TA9 PO; NITR-67 PO; OMEG10002 PO; OMEP40CA5 PO; POTA595T16 PO; PROB250C PO; SEMA2PEN SQ; SLOWTAB2 PO; THERTAB52 PO; VITATAB73 PO; lions mane PO
[2024-04-02 13:46] LABS: APPEARANCE, URINE CLOUDY (CLEAR); BACTERIA, URINE AUTO 1+ (NEGATIVE); BILIRUBIN, URINE AUTO NEGATIVE (NEGATIVE); BLOOD, URINE BLOOD 3+ (NEGATIVE); COLOR, URINE YELLOW (YELLOW); GLUCOSE, URINE (UA) AUTO NEGATIVE (NEGATIVE); KETONE, URINE AUTO NEGATIVE (NEGATIVE); LEUKOCYTE ESTERASE, URINE AUTO 3+ (NEGATIVE); MUCUS, URINE SMALL (NEGATIVE); NITRITE, URINE AUTO NEGATIVE (NEGATIVE); PROTEIN, URINE AUTO NEGATIVE (NEGATIVE); RBC, URINE AUTO 2 /HPF (0-3); SPECIFIC GRAVITY URINE AUTO 1.005 (1.002-1.035); SQUAMOUS EPITHELIAL CELL UR AU 0 /HPF (0-6); UROBILINOGEN, URINE AUTO 0.2 mg/dL (0.0-2.0); WBC, URINE AUTO 109 /HPF (0-3)
== END ==
LOC: M LAB REF 13:00
PROVIDERS: ATTEND Physician Assistant
DX: N39.0 Urinary tract infection, site not specified (principal)

== ENCOUNTER 2024-04-09 00:49 | Emergency (ER) | payer BC, SELFPAY ==
[~2024-04-09] VITALS: Ht 167.6 cm; Wt 100.6 kg
[2024-04-09 00:49] VITALS: TEMP 97.6
[~2024-04-09 00:49] MED LIST changes: -BACT800T5 PO
[2024-04-09 02:37] LABS: BASO % 0.2 % (0.0-1.0); EOS % 0.3 % (0.0-3.0); HEMATOCRIT 38.8 % (36.0-47.0); LYMPH # 1.1 10^3/uL (1.5-5.0); LYMPH % 9.5 % (24.0-44.0); MEAN CORPUSCULAR HEMOGLOBIN 29.2 pg (27.0-33.0); MEAN CORPUSCULAR HGB CONC 33.5 g/dl (32.0-36.5); MEAN CORPUSCULAR VOLUME 87.2 fl (80.0-96.0); MONO # 0.6 10^3/uL (0.0-0.8); MONO % 5.4 % (2.0-8.0); NEUTROPHILS # 9.6 10^3/uL (1.5-8.5); NEUTROPHILS % 84.1 % (36.0-66.0); PLATELET COUNT, AUTOMATED 247 10^3/uL (150-450); RED BLOOD COUNT 4.45 10^6/uL (4.00-5.40); WHITE BLOOD COUNT 11.5 10^3/uL (4.0-10.0)
[2024-04-09 03:10] LABS: BLOOD UREA NITROGEN 20 MG/DL (9-23); CARBON DIOXIDE LEVEL 24 MMOL/L (20-31); CHLORIDE LEVEL 108 MMOL/L (98-107); CREATININE FOR GFR 0.84 MG/DL (0.55-1.30); GLOMERULAR FILTRATION RATE > 60.0 (>58); GLUCOSE, FASTING 136 MG/DL (60-100); POTASSIUM SERUM 3.9 MMOL/L (3.5-5.1); SODIUM LEVEL 138 MMOL/L (136-145)
[2024-04-09] MEDS: ACETAMINOPHEN *IV* 1,000 MG in IV 1 EA IV ONE (04:45)
[2024-04-09] MEDS: NS 1,000 ML IV ONE (04:46)
[2024-04-09 05:08] LABS: LIPASE 63 U/L (12-53)
[2024-04-09 05:09] LABS: HCG, SERUM QUANTITATIVE < 2.6 MIU/ML (<4.2)
[2024-04-09] MEDS ORDERED: ISOVUE-370 76% 100ML VIAL As Ordered ONE (05:09)
[2024-04-09 05:54] VITALS: BP 117/65; O2SAT 98
[2024-04-09] MEDS ORDERED: BACT800T5 PO (07:00)
[2024-04-09 07:06] LABS: RSV AMPLIFICATION NEGATIVE (NEGATIVE)
[2024-04-09 21:41] LABS: Trichomonas vaginalis (AMP) NOT DETECTED (NEGATIVE)
[2024-04-09 22:04] LABS: GC DNA AMPLIFICATION NEGATIVE (NEGATIVE)
== END 2024-04-09 07:02 | disposition home or self-care (01) ==
LOC: M ED 00:49
DX: A08.4 Viral intestinal infection, unspecified (principal); N30.90 Cystitis, unspecified without hematuria; Z79.899 Other long term (current) drug therapy; Z79.2 Long term (current) use of antibiotics
CPT/HCPCS: 74177; 80048; 81001; 83690; 84702; 85025; 86850; 86900; 86901; 87086; 87631; 87661; 87810; 87850; 96374; 99284; J0131; Q9967

== ENCOUNTER 2024-04-17 08:44 | Day surgery (SDC) | payer BC, SELFPAY ==
[~2024-04-17] VITALS: Ht 167.6 cm; Wt 102.0 kg
[~2024-04-17 08:44] MED LIST changes: +BACT800T5 PO
[2024-04-17] MEDS ORDERED: fentaNYL 100 MCG/2 ML INJECTION As Ordered ONE (08:53)
[2024-04-17] MEDS ORDERED: ONDANSETRON 4MG 2ML VIAL As Ordered ONE (08:54)
[2024-04-17] MEDS ORDERED: MIDAZOLAM INJ 2MG/2ML VIAL As Ordered ONE (08:54)
[2024-04-17] MEDS ORDERED: SUGAMMADEX SODIUM 500 MG/5 ML VIAL (BRIDION) As Ordered ONE (08:54)
[2024-04-17] MEDS ORDERED: ROCURONIUM BROMIDE 50MG/5ML VIAL As Ordered ONE (08:54)
[2024-04-17] MEDS ORDERED: KETOROLAC 60MG 2ML VIAL As Ordered ONE (08:54)
[2024-04-17] MEDS ORDERED: LIDOCAINE 2% 100MG/5ML SDV (FOR ANES.) As Ordered ONE (08:54)
[2024-04-17] MEDS ORDERED: propofoL 200 MG/20 ML VIAL As Ordered ONE (08:54)
[2024-04-17] MEDS: LR 1,000 ML IV SCH (09:42)
[2024-04-17 09:45] LABS: HEMATOCRIT 38.9 % (36.0-47.0); MEAN CORPUSCULAR HEMOGLOBIN 29.5 pg (27.0-33.0); MEAN CORPUSCULAR HGB CONC 33.4 g/dl (32.0-36.5); MEAN CORPUSCULAR VOLUME 88.2 fl (80.0-96.0); PLATELET COUNT, AUTOMATED 246 10^3/uL (150-450); RED BLOOD COUNT 4.41 10^6/uL (4.00-5.40); WHITE BLOOD COUNT 5.2 10^3/uL (4.0-10.0)
[2024-04-17] MEDS: ceFAZolin SOD 2 GM in IV 1 EA IV ONE (10:20)
[2024-04-17] MEDS ORDERED: ACETAMINOPHEN 1000MG 100ML IV BAG As Ordered ONE (11:16)
[2024-04-17] MEDS ORDERED: LR 1,000 ML IV SCH (11:40)
[2024-04-17] MEDS ORDERED: fentaNYL 100 MCG/2 ML INJECTION IV PRN (11:40)
[2024-04-17] MEDS ORDERED: HYDROmorphone HCL 2MG/ML 1ML VIAL As Ordered ONE (11:43)
[2024-04-17] MEDS: oxyCODONE 5MG TAB PO PRN (12:11)
[2024-04-17] MEDS: ONDANSETRON 4MG 2ML VIAL IV PRN (12:11)
[2024-04-17] MEDS: HYDROMORPHONE HCL 0.5 MG/ 0.5 ML SYRINGE IV PRN (12:11)
[2024-04-17] MEDS: METOCLOPRAMIDE INJ 10MG/2ML VIAL IV ONE (12:30)
[2024-04-17 14:14] VITALS: BP 132/78; TEMP 97.1; O2SAT 100
== END 2024-04-17 10:22 | disposition home or self-care (01) ==
LOC: M SDC 08:44
PROVIDERS: ATTEND Obstetrics & Gynecology
DX: N80.03 Adenomyosis of the uterus (principal); D25.9 Leiomyoma of uterus, unspecified; K66.0 Peritoneal adhesions (postprocedural) (postinfection); K21.9 Gastro-esophageal reflux disease without esophagitis; D64.9 Anemia, unspecified; R60.9 Edema, unspecified; Z79.899 Other long term (current) drug therapy
CPT/HCPCS: 36415; 58573; 85027; 86850; 86900; 86901; 88307; J0131; J0665; J0690; J1100; J1170; J1885; J2250; J2405; J2765; J3010; S2900

== ENCOUNTER → 2024-04-22 | Outpatient (REF) | payer BC ==
[2024-04-22 21:35] LABS: APPEARANCE, URINE HAZY (CLEAR); BACTERIA, URINE AUTO 1+ (NEGATIVE); BILIRUBIN, URINE AUTO NEGATIVE (NEGATIVE); BLOOD, URINE BLOOD NEGATIVE (NEGATIVE); COLOR, URINE AMBER (YELLOW); GLUCOSE, URINE (UA) AUTO NEGATIVE (NEGATIVE); KETONE, URINE AUTO NEGATIVE (NEGATIVE); LEUKOCYTE ESTERASE, URINE AUTO 2+ (NEGATIVE); MUCUS, URINE SMALL (NEGATIVE); NITRITE, URINE AUTO POSITIVE (NEGATIVE); PROTEIN, URINE AUTO NEGATIVE (NEGATIVE); RBC, URINE AUTO 3 /HPF (0-3); SPECIFIC GRAVITY URINE AUTO 1.006 (1.002-1.035); SQUAMOUS EPITHELIAL CELL UR AU 3 /HPF (0-6); WBC, URINE AUTO 101 /HPF (0-3)
== END ==
LOC: M LAB REF 20:55
PROVIDERS: ATTEND Physician Assistant
DX: N39.0 Urinary tract infection, site not specified (principal)

== ENCOUNTER → 2024-05-07 | Outpatient (CLI) | payer BC, SELFPAY ==
[~2024-05-07] MED LIST changes: -CRAN500C11 PO; +CVS500CA5 PO
[2024-05-07 12:10] LABS: BASO % 0.5 % (0.0-1.0); EOS # 0.1 10^3/uL (0.0-0.5); EOS % 1.2 % (0.0-3.0); HEMATOCRIT 42.7 % (36.0-47.0); HEMOGLOBIN 14.6 g/dl (12.0-15.5); LYMPH % 16.8 % (24.0-44.0); MEAN CORPUSCULAR HEMOGLOBIN 30.6 pg (27.0-33.0); MEAN CORPUSCULAR HGB CONC 34.2 g/dl (32.0-36.5); MEAN CORPUSCULAR VOLUME 89.5 fl (80.0-96.0); MONO # 0.4 10^3/uL (0.0-0.8); MONO % 6.4 % (2.0-8.0); NEUTROPHILS # 4.3 10^3/uL (1.5-8.5); NEUTROPHILS % 74.8 % (36.0-66.0); PLATELET COUNT, AUTOMATED 253 10^3/uL (150-450); RED BLOOD COUNT 4.77 10^6/uL (4.00-5.40); WHITE BLOOD COUNT 5.8 10^3/uL (4.0-10.0)
[2024-05-07 13:38] LABS: PERCENT SATURATION 21.3 % (13.2-45.0)
[2024-05-07 13:41] LABS: FERRITIN 12.8 NG/ML (7.3-270.7)
== END ==
LOC: M LAB 11:04
PROVIDERS: ATTEND Registered Nurse
DX: D50.9 Iron deficiency anemia, unspecified (principal)

== ENCOUNTER → 2024-10-09 | Outpatient (REF) | payer BC, SELFPAY ==
[2024-10-09 18:44] LABS: APPEARANCE, URINE CLOUDY (CLEAR); BACTERIA, URINE AUTO 2+ (NEGATIVE); BILIRUBIN, URINE AUTO NEGATIVE (NEGATIVE); BLOOD, URINE BLOOD NEGATIVE (NEGATIVE); GLUCOSE, URINE (UA) AUTO NEGATIVE (NEGATIVE); KETONE, URINE AUTO NEGATIVE (NEGATIVE); LEUKOCYTE ESTERASE, URINE AUTO 2+ (NEGATIVE); MUCUS, URINE SMALL (NEGATIVE); NITRITE, URINE AUTO NEGATIVE (NEGATIVE); PROTEIN, URINE AUTO NEGATIVE (NEGATIVE); RBC, URINE AUTO 2 /HPF (0-3); SPECIFIC GRAVITY URINE AUTO 1.017 (1.002-1.035); SQUAMOUS EPITHELIAL CELL UR AU 11 /HPF (0-6); UROBILINOGEN, URINE AUTO 0.2 mg/dL (0.0-2.0); WBC, URINE AUTO 45 /HPF (0-3)
[2024-10-09 19:05] LABS: COLOR, URINE YELLOW (YELLOW)
== END ==
LOC: M LAB REF 17:17
PROVIDERS: ATTEND Physician Assistant
DX: N39.0 Urinary tract infection, site not specified (principal)

== ENCOUNTER → 2024-10-19 | Outpatient (CLI) | payer BC | LOC: M WHC 12:27 | PROVIDERS: ATTEND Registered Nurse | DX: R92.2 Inconclusive mammogram (principal); R92.323 Mammographic fibroglandular density, bilateral breasts ==

== ENCOUNTER → 2024-11-02 | Outpatient (CLI) | payer BC | LOC: M WHC 14:26 | PROVIDERS: ATTEND Registered Nurse | DX: R92.8 Other abnormal and inconclusive findings on diagnostic imaging of breast (principal); N60.01 Solitary cyst of right breast; N63.14 Unspecified lump in the right breast, lower inner quadrant | CPT/HCPCS: 76641; 77065; G0279 ==

== ENCOUNTER → 2025-05-11 | Outpatient (REF) | payer BC ==
[~2025-05-11] MED LIST changes: +SLOW1TAB3 PO; -SLOWTAB2 PO
[2025-05-11 12:43] LABS: APPEARANCE, URINE CLOUDY (CLEAR); BACTERIA, URINE AUTO 1+ (NEGATIVE); BILIRUBIN, URINE AUTO NEGATIVE (NEGATIVE); BLOOD, URINE BLOOD NEGATIVE (NEGATIVE); GLUCOSE, URINE (UA) AUTO NEGATIVE (NEGATIVE); KETONE, URINE AUTO NEGATIVE (NEGATIVE); LEUKOCYTE ESTERASE, URINE AUTO 2+ (NEGATIVE); MUCUS, URINE SMALL (NEGATIVE); NITRITE, URINE AUTO NEGATIVE (NEGATIVE); PROTEIN, URINE AUTO NEGATIVE (NEGATIVE); RBC, URINE AUTO 2 /HPF (0-3); SPECIFIC GRAVITY URINE AUTO 1.023 (1.002-1.035); SQUAMOUS EPITHELIAL CELL UR AU 3 /HPF (0-6); UROBILINOGEN, URINE AUTO 0.2 mg/dL (0.0-2.0); WBC, URINE AUTO TNTC /HPF (0-3)
== END ==
LOC: M LAB REF 12:17
PROVIDERS: ATTEND Physician Assistant Medical
DX: N39.0 Urinary tract infection, site not specified (principal)

== ENCOUNTER → 2025-07-15 | Outpatient (REF) | LOC: M EMP 14:24 | PROVIDERS: ATTEND Family Medicine | DX: Z01.89 Encounter for other specified special examinations (principal) ==